=== PATIENT | female | born 2000 | race Caucasian/White ===

== ENCOUNTER 2020-05-01 10:29 | Inpatient (IN) | payer MEDICAID, OTHER ==
[~2020-05-01] VITALS: Ht 160 cm; Wt 64.0 kg
[2020-05-01] MEDS ORDERED: EPIN0.3P3 IM (10:42)
[2020-05-01] MEDS ORDERED: LITH300C3 PO (10:50)
[2020-05-01] MEDS ORDERED: PRAZ5 PO (10:50)
[2020-05-01] MEDS ORDERED: QUET25TA PO (10:50)
[2020-05-01] MEDS ORDERED: HYD25 PO (10:51)
[2020-05-01] MEDS ORDERED: LURA40TA2 PO (10:51)
[2020-05-01] MEDS ORDERED: OMEP20 PO (10:51)
[2020-05-01 11:10] LABS: BASOPHILS % (AUTO) 0.5 % (0.0-2.0); EOSINOPHILS % (AUTO) 0.4 % (1.0-6.0); HEMATOCRIT 43.4 % (36-46); HEMOGLOBIN 14.4 g/dL (12.0-16.0); LYMPHOCYTES # (AUTO) 2.2 K/uL (1.0-4.8); LYMPHOCYTES % (AUTO) 30.1 % (22.0-44.0); MEAN CORPUSCULAR HGB CONC 33.3 G/dL (31.0-37.0); MEAN CORPUSCULAR VOLUME 87 fL (80-100); MONOCYTES # (AUTO) 0.4 K/uL (0.1-1.0); MONOCYTES % (AUTO) 5.5 % (2.0-9.0); NEUTROPHILS # (AUTO) 4.6 K/uL (1.8-7.7); NEUTROPHILS % (AUTO) 63.5 % (40.0-70.0); PLATELET COUNT (AUTO) 256 K/uL (150-450); RED BLOOD CELL COUNT(AUTO) 4.99 MIL/uL (4.00-5.20); RED CELL DISTRIBUTION WIDTH 13.3 % (11.5-14.5)
[2020-05-01 11:27] LABS: SALICYLATE 0.7 mg/dL (2.8-20.0)
[2020-05-01 11:28] LABS: ANION GAP 10 mmol/L (8-16); CARBON DIOXIDE 27 mmol/L (22-29); CHLORIDE 104 mmol/L (98-107); GLOMERULAR FILTR. RATE CALC > 60 mL/min (>60); GLUCOSE,RANDOM 94 mg/dL (70-110); POTASSIUM 3.8 mmol/L (3.5-5.1); SODIUM SERUM 141 mmol/L (136-145); UREA NITROGEN, BLOOD 12 mg/dL (7-18)
[2020-05-01 11:50] LABS: ALANINE AMINOTRANSFERASE 37 U/L (12-78); ALBUMIN 4.3 g/dL (3.4-5.0); ALKALINE PHOSPHATASE 105 U/L (46-116); ASPARTATE AMINOTRANSFERASE 25 U/L (15-37); BILIRUBIN,TOTAL 0.4 mg/dL (0.1-1.0); HCG,QUANTITATIVE 2 mIU/mL (0-6); TOTAL PROTEIN, SERUM 8.1 g/dL (6.4-8.2)
[2020-05-01 11:51] LABS: ACETAMINOPHEN < 2 mcg/mL (10-30)
[2020-05-01 12:11] LABS: COVID AG,FIA SOURCE NASOPHARYNGEAL
[2020-05-01 12:25] LABS: APPEARANCE,URINE CLEAR (CLEAR); BILIRUBIN,URINE NEGATIVE (NEGATIVE); GLUCOSE, URINE (UA) NEGATIVE (NEGATIVE); KETONES,URINE TRACE mg/dL (NEGATIVE); LEUKOCYTE ESTERASE ,URINE SMALL (NEGATIVE); NITRATE,URINE NEGATIVE (NEGATIVE); OCCULT BLOOD,URINE NEGATIVE (NEGATIVE); PH,URINE 6.5 (5.0-8.0); PROTEIN,URINE NEGATIVE (NEGATIVE); UROBILINOGEN,URINE 0.2 mg/dL (<=1.0)
[2020-05-01 12:30] LABS: AMPHET/METH SCREEN,URINE NEGATIVE (NEGATIVE); BARBITURATE SCREEN, URINE NEGATIVE (NEGATIVE); BENZODIAZEPINES SCREEN,URINE NEGATIVE (NEGATIVE); CANNABINOID SCREEN,URINE NEGATIVE (NEGATIVE); COCAINE SCREEN,URINE NEGATIVE (NEGATIVE); METHADONE SCREEN, URINE NEGATIVE (NEGATIVE); OPIATE SCREEN,URINE NEGATIVE (NEGATIVE)
[2020-05-01] MEDS ORDERED: HALOPERIDOL 5 MG TABLET PO PRN (12:30)
[2020-05-01] MEDS ORDERED: ZOLPIDEM TARTRATE 10 MG TABLET PO PRN (12:30)
[2020-05-01] MEDS ORDERED: LORazepam 2 MG TABLET PO PRN (12:30)
[2020-05-01 12:31] LABS: PHENCYCLIDINE SCREEN,URINE NEGATIVE (NEGATIVE)
[2020-05-01 13:04] LABS: BACTERIA,URINE None Seen /HPF (None Seen); RBC,URINE None Seen /HPF (0-2); SQUAMOUS EPITHELIAL CELL,UR Moderate /LPF (None Seen)
[2020-05-01 14:37] VITALS: BP 114/87
[2020-05-01 16:44] VITALS: BP 130/75
[2020-05-01] MEDS ORDERED: MAGNESIUM HYDROXIDE SUSPENSION 30 ML UDCUP PO PRN (16:45)
[2020-05-01] MEDS ORDERED: ALBUTEROL SULFATE HFA 90 MCG/PUFF 8 GM INHALER IH PRN (16:45)
[2020-05-01] MEDS ORDERED: IBUPROFEN 400 MG TABLET PO PRN (16:45)
[2020-05-01] MEDS ORDERED: ONDANSETRON HCL 4 MG TABLET PO PRN (16:45)
[2020-05-01] MEDS ORDERED: NICOTINE 14 MG/24 HOUR PATCH TD PRN (16:45)
[2020-05-01] MEDS ORDERED: GuaiFENesin/D-METHORPHAN [SUGAR-FREE] 200-20MG/10 ML SYRUP UDCUP PO PRN (16:45)
[2020-05-01] MEDS ORDERED: PETROLATUM,WHITE 28 GM JELLY TP PRN (16:45)
[2020-05-01] MEDS ORDERED: MAG HYDROX/AL HYDROX/SIMETH ES 30 ML SUSPENSION UDCUP PO PRN (16:45)
[2020-05-01] MEDS ORDERED: ACETAMINOPHEN 325 MG TABLET PO PRN (16:45)
[2020-05-01] MEDS ORDERED: CloNIDine HCL 0.1 MG TABLET PO PRN (16:45)
[2020-05-01] MEDS ORDERED: DOCUSATE SODIUM 100 MG CAPSULE PO PRN (16:45)
[2020-05-02 07:14] LABS: CHOL/HDL RATIO 5.8 (3.9-5.7)
[2020-05-02] MEDS: OMEPRAZOLE 20 MG CAPSULE PO SCH (08:44)
[2020-05-02 09:39] VITALS: BP 108/68
[2020-05-02] MEDS ORDERED: DiphenhydrAMINE HCL 25 MG CAPSULE PO PRN (15:15)
[2020-05-02 16:22] VITALS: BP 121/87
[2020-05-02] MEDS: LURASIDONE HCL 40 MG TABLET PO SCH (19:44)
[2020-05-02] MEDS: LITHIUM CARBONATE 300 MG CAPSULE PO SCH (21:08)
[2020-05-03] MEDS: OMEPRAZOLE 20 MG CAPSULE PO SCH (08:20)
[2020-05-03 10:03] VITALS: BP 115/75
[2020-05-03 16:19] VITALS: BP 102/64
[2020-05-03] MEDS: LURASIDONE HCL 40 MG TABLET PO SCH (17:30)
[2020-05-03] MEDS: LITHIUM CARBONATE 300 MG CAPSULE PO SCH (20:04)
[2020-05-04 01:43] VITALS: BP 134/82
[2020-05-04 08:40] VITALS: BP 117/73
[2020-05-04] MEDS: OMEPRAZOLE 20 MG CAPSULE PO SCH (08:42)
[2020-05-04] MEDS ORDERED: LURA40TA2 PO ×2 (10:18→10:19)
== END 2020-05-04 11:10 | disposition home or self-care (01) | DRG 753 ==
LOC: EMS 10:30 → 3EI 14:05 → UNDOADMIN 14:05 → 3EI 14:42 → UNDOADMIN 05-02 12:24
DX: F31.4 Bipolar disorder, current episode depressed, severe, without psychotic features (principal); D64.9 Anemia, unspecified; G43.909 Migraine, unspecified, not intractable, without status migrainosus; Z91.5 Personal history of self-harm; Z91.018 Allergy to other foods; Z91.013 Allergy to seafood; Z88.8 Allergy status to other drugs, medicaments and biological substances; Z20.828 Contact with and (suspected) exposure to other viral communicable diseases; K21.9 Gastro-esophageal reflux disease without esophagitis; F43.10 Post-traumatic stress disorder, unspecified; R45.851 Suicidal ideations
CPT/HCPCS: 87426; G0480; G0481